=== PATIENT | female | born 1950 | race African-American/Black ===

== ENCOUNTER 2019-10-28 15:46 | Observation (INO) | payer MEDICARE, MEDICAID, SELFPAY ==
--- NOTE | ~2019-10-28 | CT_ITS ---
EXAMINATION: CT cervical spine wo con DATE: 10/28/2019 18:03 INDICATION: Chronic neck pain. Recent fall. TECHNIQUE: Computed tomography (CT) of the cervical spine was performed without intravenous contrast. The dose-length product was 584 mGy-cm. COMPARISON: CT dated 02/02/2017 FINDINGS: No acute fracture, subluxation or dislocation. Odontoid process within normal limits. There is moderate-severe multilevel spondylosis characterized by disc narrowing, endplate hypertrophy as w ell as uncinate and facet degenerative change. Lung apices are unremarkable. No evidence for perched facet. Odontoid process within normal limits. Mildly enlarged thyroid gland with heterogeneous appear ance. IMPRESSION: 1. No acute abnormality of the cervical spine. 2: Moderate-severe cervical spondylosis. Reviewed, dictated and finalized at location A.
--- NOTE | ~2019-10-28 | CT_ITS ---
EXAMINATION: CT abd pelvis lumbar w con DATE: 10/28/2019 18:03 INDICATION: Chronic back pain. Recent fall. TECHNIQUE: Computed tomography (CT) of the abdomen, pelvis and lumbar spine was performed without int ravenous contrast. The dose-length product was 1324.44 mGy-cm. Automated exposure control and iterati ve reconstruction technique were employed. COMPARISON: Lumbar spine series dated 07/01/2015. FINDINGS: Abdomen/pelvis: Bibasilar dependent atelectasis. Cardiomegaly. No significant pleural or pericardial effusion. Gallbladder is not identified, likely surgically absent. The liver, pancreas, adrenal gland s and kidneys are unremarkable. There are calcified granulomas in the spleen. There is an accessory s plenule in the left upper abdomen. No renal/ureteral stones. No significant hydronephrosis. No lympha denopathy. There is a lower abdominal wall ventral hernia containing nonobstructed bowel. There are b ilateral elliptical shaped soft tissue masses above the level of the umbilicus, largest measures 16.1 x 6.7 x 8.0 cm. Nonobstructive bowel gas pattern. Lumbar spine: There is severe lower thoracic spondylosis with complete loss of disc space at T11-12 a nd loss of disc space at T10-11, T12-L1 and L3-4. There is a concavity in the superior endplate of L4 which may represent a large Schmorl's node or posttraumatic deformity which would likely be chronic. There is degenerative anterolisthesis at L3-4. No acute fracture or traumatic malalignment is identi fied. Mild levocurvature of the lumbar spine. There is mild facet hypertrophy at L4-5 and L5-S1. IMPRESSION: 1. Elliptical shaped soft tissue masses involving the subcutaneous tissues of the anterior abdomen ab ove the umbilicus, nonspecific. Consider sequela of recent trauma or subcutaneous injections. Infecti ous/malignant etiologies are less favored. Correlate clinically for palpable abnormalities. 2: Lower abdominal wall ventral hernia containing nonobstructed bowel. 3: Severe thoracic and lumbar spondylosis. Concavity superior endplate of L4, likely represents large Schmorl's nodes secondary to degenerative change or remote posttraumatic deformity. Reviewed, dictated and finalized at location A. IMPRESSION: 1. Elliptical shaped soft tissue masses involving the subcutaneous tissues of t he anterior abdomen above the umbilicus, nonspecific. Consider sequela of recen t trauma or subcutaneous injections. Infectious/malignant etiologies are less f avored. Correlate clinically for palpable abnormalities. 2: Lower abdominal wall ventral hernia containing nonobstructed bowel. 3: Severe thoracic and lumbar spondylosis. Concavity superior endplate of L4, l ikely represents large Schmorl's nodes secondary to degenerative change or mykel te posttraumatic deformity.
--- NOTE | ~2019-10-28 | US_ITS ---
EXAMINATION: US renal BI DATE: 10/29/2019 07:59 INDICATION: Acute kidney injury TECHNIQUE: Multiple grayscale and Doppler ultrasound images of the kidneys were obtained. COMPARISON: None. FINDINGS: The right kidney measures 12.1 x 4.7 x 5.2 cm. The left kidney measures 11.5 x 5.8 x 5.2 cm . The kidneys demonstrate normal parenchymal echogenicity. There is no hydronephrosis. The bladder is incompletely distended but normal in appearance.. IMPRESSION: 1. Normal kidneys without hydronephrosis. Reviewed, dictated and finalized at location A.
--- NOTE | ~2019-10-28 | XR_ITS ---
EXAMINATION: XR chest 1V portable 10/28/2019 18:47 INDICATION: Shortness of breath PROCEDURE: AP portable chest COMPARISON: No prior studies for comparison. FINDINGS: The lungs are clear. The cardiomediastinal silhouette is within normal limits. There are no pleural effusions. There is no pneumothorax suspected. IMPRESSION: 1: NO ACUTE CARDIOPULMONARY DISEASE. Reviewed, dictated and finalized at location A.
[2019-10-28 15:43] VITALS: BP 140/57; PULSE 88; RESP 17; TEMP 36.7; O2SAT 98
[2019-10-28 17:01] LABS: Basophils Absolute Auto 0.1 K/mm3 (0.0-0.1); Basophils Percent Auto 0.3 % (0.2-1.2); Eosinophils Absolute Auto 0.2 K/mm3 (0-0.3); Eosinophils Percent Auto 1.1 % (0-4.4); Immature Granulocyte Absolute 0.15 K/mm3 (0.00-0.031); Lymphocytes Absolute Auto 1.92 K/mm3 (0.9-3.2); Lymphocytes Percent Auto 13.3 % (18.3-44.2); Mean Corpuscular HGB Conc 32.3 g/dl (32-36); Mean Corpuscular Hemoglobin 26.8 pg (26-34); Mean Corpuscular Volume 83.1 fl (80-100); Mean Platelet Volume 8.7 fl (7.4-10.4); Monocytes Percent Auto 6.7 % (2.6-8.5); Neutrophils Absolute Auto 11.2 K/mm3 (1.3-6.7); Neutrophils Percent Auto 77.6 % (45.5-73.1); Platelet Count Result 483 k/mm3 (150-375); Red Blood Count 3.73 M/mm3 (4.2-5.4); Red Cell Distribution Width 16.1 % (11.5-14.5); White Blood Count 14.5 K/mm3 (4.5-10.0)
[2019-10-28 17:03] LABS: Glucose Point of Care 314 (65-105)
[2019-10-28] MEDS: SODIUM CHLORIDE 0.9% IV 1,000 ML 999 ML IV CONT ×2 (17:03→18:41)
--- NOTE | 2019-10-28 17:03 | PC.NURSE ---
unable to obtain urine sample at this time
[2019-10-28 17:17] LABS: Alanine Aminotransferase 12 U/L (4-35); Albumin Level 3.8 g/dL (3.5-5.1); Alkaline Phosphatase 142 U/L (38-126); Aspartate Amino Transferase 21 U/L (14-36); Bilirubin,Total 0.4 mg/dL (0.2-1.3); Blood Urea Nitrogen 37 mg/dL (7-17); CRP 8.8 mg/dL (<1.0); Calcium 9.2 mg/dL (8.4-10.2); Carbon Dioxide 23 mmol/L (22-30); Chloride 99 mmol/L (98-107); Estimated CRCL calculation 30 ml/min; Estimated Glomerular Filt Rate 32; Glucose 351 mg/dL (65-105); Magnesium 2.6 mg/dL (1.6-2.3); Potassium 4.6 mmol/L (3.4-5.0); Sodium 133 mmol/L (137-145)
[2019-10-28 17:34] LABS: Alveolar/Arterial O2 Gradient 52.1 mmHg; Carboxyhemoglobin 0.6 % THb (0-2.0); Fractional Inspired Oxygen 21 %; HCO3 ABG 21.8 mEq/l (22.0-26.0); Methemoglobin ABG 0.3 %THb (0-1.5); Oxygen Content ABG 11.3 %vol (16.0-22.0); Oxyhemoglobin 77.4 % THb (90.0-100.0); Reduced Hemoglobin 21.7 %THb (0-5.0); Total Hemoglobin 10.4 g/dL (12.0-18.0); pH ABG 7.323 (7.350-7.450)
[2019-10-28 17:37] LABS: PO2 ABG 46.1 mmHg (80.0-100.0)
[2019-10-28 17:38] LABS: Modified Allen's Test Pass; Oxygen Saturation ABG 78.7 % (95.0-100.0); Site Drawn LEFT RADIAL
[2019-10-28 18:28] LABS: Add Urine Microscopic? YES; Appearance Urine Clear (Clear); Bacteria Urine Trace /hpf; Bilirubin Urine Negative (Negative); Blood Urine Negative (Negative); Color Urine Straw (Yellow); Glucose Urine UA 3+ mg/dL (Negative); Ketones Urine Trace mg/dL (Negative); Leukocyte Esterase Ur Negative LEU/UL (Negative); Mucus Urine Rare /lpf; Nitrate Urine Negative (Negative); Protein Urine Negative (Negative); RBC Urine 0-2 /hpf (0-2); Specific Grav Ur 1.018 (1.001-1.035); Squamous Epithelial Cell Urine Rare /hpf (Few); Urobilinogen Urine Negative mg/dL (<2.0); WBC Urine 0-3 /hpf
--- NOTE | 2019-10-28 18:47 | ED.GENADULT ---
HPI - General Adult General Chief complaint: Back Pain/Injury <CHASTITY Reyes Last Filed: 10/28/19 19:21> Stated complaint: neck & back pain <CHASTITY Reyes Last Filed: 10/28/19 19:21> Time Seen by Provider: 10/28/19 16:21 <CHASTITY Reyes Last Filed: 10/28/19 19:21> Source: patient <CHASTITY Reyes Last Filed: 10/28/19 19:21> Mode of arrival: EMS <CHASTITY Reyes Last Filed: 10/28/19 19:21> Limitations: no limitations <CHASTITY Reyes Last Filed: 10/28/19 19:21> History of Present Illness HPI narrative: Patient is a 69-year-old female who presents to emergency department noting difficulty with performing daily activities with decreased p.o. intake also noting that she has not taken her diabetes mellitus medications in the last week patient notes she has had neck and back pain since sustaining a fall approximately a week ago after which she was evaluated at an outside hospital sent home where she has had progressive deterioration in ability to perform daily activities patient on arrival in the bed noting moderate aching pain of the neck and low back. Patient denies new fall. Patient denies any URI symptoms urinary symptoms diarrhea or vomiting or any fever. Patient has been taking home medications off and on with some medication noncompliance as described by patient <CHASTITY Reyes Last Filed: 10/28/19 19:21> Related Data Home medications: Home Medications Medication Instructions Recorded Confirmed Unable to Obtain Home Medications 10/28/19 10/28/19 <CHASTITY Reyes Last Filed: 10/28/19 19:21> Allergies/adverse reactions: Allergies Allergy/AdvReac Type Severity Reaction Status Date / Time No Known Allergies Allergy Verified 10/28/19 15:48 <CHASTITY Reyes Last Filed: 10/28/19 19:21> Review of Systems Review of Systems: All systems reviewed & are unremarkable except as noted in HPI and below <CHASTITY Reyes Last Filed: 10/28/19 19:21> [facility] Past Medical History Medical History: Medical History Acute kidney injury Dehydration Diabetes mellitus Obesity <Adalberto Hamilton PA-C - Last Filed: 10/28/19 19:21> Social History Social History: Social History Smoking status: Never smoker Alcohol intake: never Substance use: never Living arrangements: alone Occupation/Education: unemployed Gender identity (if verbalized by the patient): Female <Adalberto Hamilton PA-C - Last Filed: 10/28/19 19:21> Exam Narrative: Exam Narrative: GENERAL: Well-appearing, obese, and in no acute distress. HEAD: Normocephalic, atraumatic. EYES: PERRLA and EOMI. ENT: Nares clear, no rhinorrhea or epistaxis. Mucous membranes moist. Oropharynx without tonsillar hypertrophy exudate or other lesions. Bilateral TMs pearly gatica nonbulging NECK: Supple. No adenopathy or masses. CHEST: Clear to auscultation. No respiratory distress. No wheezes rales or rhonchi HEART: Regular rate and rhythm. No murmur heard. Normal peripheral pulses. ABDOMEN: Soft, patient with mild tenderness of the abdomen which is generalized no rebound or guarding, nondistended, normal active bowel sounds. EXTREMITIES: Normal range of motion. No edema. Cervical and lumbar tenderness no thoracic tenderness SKIN: Warm, dry, no rash. NEURO: No focal deficits. Alert and oriented x3. Cranial nerves II through XII grossly intact PSYCH: Normal mood and affect. <Adalberto Hamilton PA-C - Last Filed: 10/28/19 19:21> Course Course Emergency Course: Patient in the room at this time aware of case findings treatment plan and diagnosis will be placed in hospital for acute kidney injury hyperglycemia new immobility. <Adalberto Hamilton PA-C - Last Filed: 10/28/19 19:21> ROTARY DERRICK OPERATOR/PA Physician Superv
[2019-10-28 20:00] VITALS: BP 150/59; PULSE 85; RESP 20; TEMP 36.4; O2SAT 100
[2019-10-28 20:10] VITALS: BMI 42.6
[2019-10-28 20:56] VITALS: BP 147/86; PULSE 87; RESP 17; O2SAT 98
--- NOTE | 2019-10-28 21:56 | PM.IMHP ---
H&P: HPI History of Present Illness Chief complaint: Acute kidney injury, hyperglycemia, Narrative: Elayne Pineda is a 69 year old female came to the emergency room today because she is having difficulty performing activities of daily living. She had decreased oral intake and had not been taking any of her medications. The patient sustained a fall about a week ago and was evaluated by an outside hospital she was sent home patient has lower back pain. She has no fever no chills no nausea no vomiting. No urinary symptoms. White count 14.5. H&H is 10.0 in 31.0. The patient stated she has not had any history of any kidney disease in the past. However today patient's creatinine is 1.9. Her blood sugars 314 and her magnesium levels 2.6. BUN is 37. Patient was given IV fluids in the emergency room chest x-ray was read as nothing acute. CT of the back cervical spine was read as no acute abnormality of the cervical spine. Moderate severe cervical spondylosis. Date of service 10/28/2019 Review of Systems Review of Systems: All systems reviewed & are unremarkable except as noted in HPI and below Constitutional: Constitutional: Reports as per HPI and Reports no additional constitutional complaints Eyes: Eyes: Reports as per HPI and Reports no additional eye complaints ENT: Reports system reviewed and no additional complaints, except as documented and Reports Normal hearing present Cardiovascular: Cardiovascular: Reports no additional cardiovascular complaints Respiratory: Respiratory: Reports no additional respiratory complaints and Reports no additional respiratory complaints Gastrointestinal: Gastrointestinal: Reports as per HPI and Reports no additional gastrointestinal complaints Musculoskeletal: Musculoskeletal: Reports no additional musculoskeletal complaints Integumentary/Breasts: Skin/Breast: Reports system reviewed and no additional complaints, except as docu and Reports as per HPI Neurologic: Reports system reviewed and no additional complaints, except as documented, Reports as per HPI and Reports Normal hearing present Psychiatric: Psychiatric: Reports no additional psychiatric complaints and Reports as per HPI Endocrine: Endocrine: Reports no additional endocrine complaints Hematologic/Lymphatic: Hematologic/Lymphatic: Reports no additional hematologic/lymphatic complaints Allergic/Immunologic: Allergic/Immunologic: Reports no additional allergic/immunologic complaints [facility] Past Medical History Medical History (Updated 10/28/19 @ 22:04 by Renate Fields NP) Acute kidney injury Anemia Congestive heart failure CVA (cerebral vascular accident) Dehydration Diabetes mellitus DM2 (diabetes mellitus, type 2) Insulin dependent Glaucoma Hypertension Obesity Surgical History Surgical History (Updated 10/28/19 @ 22:04 by Renate Fields NP) Cataract extraction status Bilaterally H/O removal of cyst Left wrist H/O: hysterectomy History of appendectomy Hx of cholecystectomy S/P trigger finger release Family History Family History Daughter Cerebrovascular accident Sibling Lung cancer 1 brother Malignant neoplasm of prostate Other brother Social History Social History (Updated 10/28/19 @ 22:09 by Renate Fields NP) Social History: The patient has 3 children. 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 She lives home alone. She is a full code and does not have a durable power litigation attorney for healthcare. One daughter is in the residential due to strokes. She denies any alcohol tobacco or drugs. Smoking status: Never smoker Alcohol intake: never Substance use: never Living arrangements: alone Occupation/Education: unemployed Gender identity (if verbalized by the patient): Female Meds Home Medications and Allergies Home Medications Medication Instructions Recorded Confirmed Type Unable t
[2019-10-28 22:00] VITALS: BP 148/62; PULSE 84; RESP 18; TEMP 36.2; O2SAT 100
[2019-10-28] MEDS: FAMOTIDINE 20 MG/2 ML VIAL IV PUSH (23:37)
[2019-10-28] MEDS: LACTATED RINGERS 1,000 ML 75 ML IV CONT (23:37)
[2019-10-29 00:16] LABS: Creatinine Urine 27.7 mg/dL
[2019-10-29 00:30] LABS: Sodium Urine Random 76 meq/L
[2019-10-29] MEDS: ZOLPIDEM TARTRATE 5 MG TABLET 10 MG PO ×2 (01:31→21:57)
--- NOTE | 2019-10-29 05:33 | ADMGEN ---
This patient, Elayne Pineda, was admitted to 3 [facility] Surg Room 320-01. Patient/family oriented to hospital policies and general routines including ID bracelet, bed and alarms, visiting hours, pain management, procedures, bathroom and other care routines, personal items, smoking policy, room service/diet, and visiting hours. Valuables list has been completed. Information on how to activate the Rapid Response Team has been discussed. Patient/Family are encouraged to report perceived risks to care and to ask questions if they do not understand what they are told or what they should do.
[2019-10-29 05:57] LABS: Total Protein Urine Random 16 mg/dL
[2019-10-29 06:00] VITALS: BP 150/62; PULSE 77; RESP 16; TEMP 36.2; O2SAT 100
[2019-10-29 06:16] LABS: Basophils Absolute Auto 0.1 K/mm3 (0.0-0.1); Basophils Percent Auto 0.5 % (0.2-1.2); Eosinophils Absolute Auto 0.3 K/mm3 (0-0.3); Eosinophils Percent Auto 2.3 % (0-4.4); Hematocrit 32.5 % (37.0-47.0); Hemoglobin 10.2 g/dL (12.0-15.0); Immature Granulocyte Absolute 0.16 K/mm3 (0.00-0.031); Immature Granulocyte Percent A 1.1 % (0-0.5); Lymphocytes Absolute Auto 2.02 K/mm3 (0.9-3.2); Lymphocytes Percent Auto 13.9 % (18.3-44.2); Mean Corpuscular HGB Conc 31.4 g/dl (32-36); Mean Corpuscular Hemoglobin 26.4 pg (26-34); Mean Corpuscular Volume 84.2 fl (80-100); Mean Platelet Volume 8.8 fl (7.4-10.4); Neutrophils Percent Auto 75.2 % (45.5-73.1); Platelet Count Result 476 k/mm3 (150-375); Red Blood Count 3.86 M/mm3 (4.2-5.4); Red Cell Distribution Width 16.3 % (11.5-14.5); White Blood Count 14.6 K/mm3 (4.5-10.0)
[2019-10-29 06:36] LABS: Blood Urea Nitrogen 30 mg/dL (7-17); Calcium 9.1 mg/dL (8.4-10.2); Carbon Dioxide 21 mmol/L (22-30); Chloride 104 mmol/L (98-107); Estimated CRCL calculation 36 ml/min; Estimated Glomerular Filt Rate 42; Glucose 278 mg/dL (65-105); Sodium 134 mmol/L (137-145)
[2019-10-29 06:38] LABS: Hemoglobin A1C 9.6 % (<5.7)
[2019-10-29 08:00] VITALS: PULSE 77; RESP 16; O2SAT 100
[2019-10-29 09:31] LABS: Glucose Point of Care 292 (65-105)
[2019-10-29] MEDS: FAMOTIDINE 20 MG/2 ML VIAL IV PUSH ×2 (10:26→21:57)
[2019-10-29] MEDS: metOLazone 5 MG TABLET PO (10:26)
[2019-10-29] MEDS: TIZANIDINE HCL 4 MG TABLET PO ×2 (10:26→17:30)
[2019-10-29] MEDS: ATORVASTATIN 40 MG TABLET PO (10:29)
[2019-10-29] MEDS: buPROPion HCL XL (24 HR) 150 MG TABCR 300 MG PO (10:29)
[2019-10-29] MEDS: PANTOPRAZOLE 40 MG TABLET PO (10:30)
[2019-10-29] MEDS: INSULIN ASPART (*BKC) 100 UNITS/ML SUB-Q ×3 (10:37→17:32)
[2019-10-29] MEDS: LACTATED RINGERS 1,000 ML 75 ML IV CONT (10:37)
[2019-10-29] MEDS: CANAGLIFLOZIN 100 MG TABLET PO (10:38)
[2019-10-29 12:54] LABS: Glucose Point of Care 353 (65-105)
[2019-10-29 14:00] VITALS: BP 129/48; PULSE 75; RESP 18; TEMP 36.3; O2SAT 100
--- NOTE | 2019-10-29 14:22 | P.PNIM_ITS ---
Progress Note: A&P Assessment and Plan (1) Acute kidney injury: Code(s): N17.9 - Acute kidney failure, unspecified Status: Acute Assessment and Plan: At presentation, creatinine 1.9 and BUN 37. Her JACY is likely prerenal secondary to dehydration. Renal ultrasound revealed normal kidneys without evidence of hydronephrosis. Improvement in renal function today with creatinine 1.5 and BUN 30. There are no prior records to establish baseline. * Continue gentle IV fluid hydration * Renally dose medications avoid nephrotoxic agents * Continue to monitor renal function closely. Suspect improvement with rehyd ration. (2) Dehydration: Code(s): E86.0 - Dehydration Status: Acute Assessment and Plan: Patient reports earlier this week she had been vomiting and had not been tolerating oral intake. On my exam today, she appears euvolemic with very mild pedal edema. * Continue very gentle IV fluids today. Plan to discontinue tomorrow with hopeful improvement of JACY. * Closely monitor for signs of fluid overload given patient's reported history of CHF. * Monitor I&O closely (3) Acute bilateral low back pain: Qualifiers: Sciatica presence: without sciatica Qualified Code(s): M54.5 - Low back pain Code(s): M54.5 - Low back pain Status: Acute Assessment and Plan: She has had back pain for some time and has previously been established with Pain Management, although she is no longer current. She had a fall approximately 1 week ago that exacerbated her pain. She has been complaining of weakness since this time. CT of lumbar spine demonstrates severe thoracic and lumbar spondylosis * Continue p.r.n. [place] for pain * Supportive care including heat and ice as needed * Continue PT and OT * Patient may benefit from reestablishment with pain management per primary care referral. (4) Cervicalgia: Code(s): M54.2 - Cervicalgia Status: Acute Assessment and Plan: Patient complains of neck pain and has limited range of motion on exam, secondary to pain. A CT of her neck demonstrated moderate to severe cervical spondylosis without any acute abnormalities. * Continue care as above with [place] for pain and supportive care. * Patient may benefit from pain management as above (5) DM2 (diabetes mellitus, type 2): Qualifiers: Diabetes mellitus intermission coordinator insulin use: with intermediate use Code(s): E11.9 - Type 2 diabetes mellitus without complications Status: Chronic Assessment and Plan: Her A1c is 9.6% (10/29/2019). She is not on any long-acting insulin but does use sliding scale insulin at home. Her blood sugars have been elevated during her stay up to 353 today. * Continue Accu-Cheks ACHS, moderate dose sliding scale insulin, and hypoglycemia protocol * Will add 15 units Lantus for improved control * Continue Invokana * Continue to monitor blood sugars closely (6) Hypertension: Qualifiers: Hypertension type: essential hypertension Qualified Code(s): I10 - Es sential (primary) hypertension Code(s): I10 - Essential (primary) hypertension Status: Chronic Assessment and Plan: Blood pressure was evaluated today and is stable at 150/62. She is not on any antihypertensives, with the exception of her diuretic therapy. * She has p.r.n. hydralazine on board. She has not required any doses. * Plan to resume Lasix when clinically appropriate * Continue to monitor blood pressures closely (7) Anemia:
--- NOTE | 2019-10-29 14:22 | PM.IMPN ---
Progress Note: A&P Assessment and Plan (1) Acute kidney injury: Code(s): N17.9 - Acute kidney failure, unspecified Status: Acute Assessment and Plan: At presentation, creatinine 1.9 and BUN 37. Her JACY is likely prerenal secondary to dehydration. Renal ultrasound revealed normal kidneys without evidence of hydronephrosis. Improvement in renal function today with creatinine 1.5 and BUN 30. There are no prior records to establish baseline. Continue gentle IV fluid hydration Renally dose medications avoid nephrotoxic agents Continue to monitor renal function closely. Suspect improvement with rehydration. (2) Dehydration: Code(s): E86.0 - Dehydration Status: Acute Assessment and Plan: Patient reports earlier this week she had been vomiting and had not been tolerating oral intake. On my exam today, she appears euvolemic with very mild pedal edema. Continue very gentle IV fluids today. Plan to discontinue tomorrow with hopeful improvement of JACY. Closely monitor for signs of fluid overload given patient's reported history of CHF. Monitor I&O closely (3) Acute bilateral low back pain: Qualifiers: Sciatica presence: without sciatica Qualified Code(s): M54.5 - Low back pain Code(s): M54.5 - Low back pain Status: Acute Assessment and Plan: She has had back pain for some time and has previously been established with Pain Management, although she is no longer current. She had a fall approximately 1 week ago that exacerbated her pain. She has been complaining of weakness since this time. CT of lumbar spine demonstrates severe thoracic and lumbar spondylosis Continue p.r.n. [place] for pain Supportive care including heat and ice as needed Continue PT and OT Patient may benefit from reestablishment with pain management per primary care referral. (4) Cervicalgia: Code(s): M54.2 - Cervicalgia Status: Acute Assessment and Plan: Patient complains of neck pain and has limited range of motion on exam, secondary to pain. A CT of her neck demonstrated moderate to severe cervical spondylosis without any acute abnormalities. Continue care as above with [place] for pain and supportive care. Patient may benefit from pain management as above (5) DM2 (diabetes mellitus, type 2): Qualifiers: Diabetes mellitus fci insulin use: with fci use Code(s): E11.9 - Type 2 diabetes mellitus without complications Status: Chronic Assessment and Plan: Her A1c is 9.6% (10/29/2019). She is not on any long-acting insulin but does use sliding scale insulin at home. Her blood sugars have been elevated during her stay up to 353 today. Continue Accu-Cheks ACHS, moderate dose sliding scale insulin, and hypoglycemia protocol Will add 15 units Lantus for improved control Continue Invokana Continue to monitor blood sugars closely (6) Hypertension: Qualifiers: Hypertension type: essential hypertension Qualified Code(s): I10 - Essential (primary) hypertension Code(s): I10 - Essential (primary) hypertension Status: Chronic Assessment and Plan: Blood pressure was evaluated today and is stable at 150/62. She is not on any antihypertensives, with the exception of her diuretic therapy. She has p.r.n. hydralazine on board. She has not required any doses. Plan to resume Lasix when clinically appropriate Continue to monitor blood pressures closely (7) Anemia: Code(s): D64.9 - Anemia, unspecified Status: Chronic Assessment and Plan: Microcytic. She reports history of anemia. There are no prior labs for review, however hemoglobin hematocrit have been stable today. Continue to monitor H&H closely (8) Generalized weakness: Code(s): R53.1 - Weakness Status: Acute Assessment and Plan: She had a fall approximately 1 week ago. She re
[2019-10-29 17:32] LABS: Glucose Point of Care 322 (65-105)
[2019-10-29 22:00] VITALS: BP 146/62; PULSE 76; RESP 20; TEMP 36.3; O2SAT 100
[2019-10-29] MEDS: INSULIN GLARGINE (*BKC) 100 UNITS/ML 15 UNITS SUB-Q (22:02)
[2019-10-30] MEDS: LACTATED RINGERS 1,000 ML 75 ML IV CONT (02:30)
[2019-10-30 05:43] LABS: Glucose Point of Care 359 (65-105)
[2019-10-30 06:00] VITALS: BP 146/61; PULSE 87; RESP 20; TEMP 36.1; O2SAT 100
[2019-10-30 06:39] LABS: Hematocrit 31.2 % (37.0-47.0); Hemoglobin 10.1 g/dL (12.0-15.0); Mean Corpuscular HGB Conc 32.4 g/dl (32-36); Mean Corpuscular Hemoglobin 26.6 pg (26-34); Mean Corpuscular Volume 82.3 fl (80-100); Mean Platelet Volume 8.3 fl (7.4-10.4); Platelet Count Result 428 k/mm3 (150-375); Red Blood Count 3.79 M/mm3 (4.2-5.4); Red Cell Distribution Width 16.2 % (11.5-14.5); White Blood Count 14.9 K/mm3 (4.5-10.0)
[2019-10-30 06:51] LABS: Blood Urea Nitrogen 23 mg/dL (7-17); Calcium 9.2 mg/dL (8.4-10.2); Carbon Dioxide 23 mmol/L (22-30); Chloride 100 mmol/L (98-107); Estimated CRCL calculation 39 ml/min; Estimated Glomerular Filt Rate 45; Glucose 297 mg/dL (65-105); Sodium 132 mmol/L (137-145)
[2019-10-30] MEDS: buPROPion HCL XL (24 HR) 150 MG TABCR 300 MG PO (07:59)
[2019-10-30] MEDS: TIZANIDINE HCL 4 MG TABLET PO (07:59)
[2019-10-30] MEDS: ATORVASTATIN 40 MG TABLET PO (07:59)
[2019-10-30] MEDS: CANAGLIFLOZIN 100 MG TABLET PO (07:59)
[2019-10-30] MEDS: PANTOPRAZOLE 40 MG TABLET PO (07:59)
[2019-10-30] MEDS: INSULIN ASPART (*BKC) 100 UNITS/ML SUB-Q ×2 (08:02→12:01)
[2019-10-30 08:25] LABS: Glucose Point of Care 291 (65-105)
[2019-10-30 12:11] LABS: Glucose Point of Care 308 (65-105)
[2019-10-30 14:00] VITALS: BP 132/76; PULSE 74; RESP 18; TEMP 36.4; O2SAT 100
--- NOTE | 2019-10-30 14:53 | PM.DS ---
DS: Admitting Diagnosis Admitting Diagnosis Admitting Diagnosis: Acute kidney failure, unspecified DS: Discharge Diagnosis Discharge Diagnosis (1) Acute kidney injury: Code(s): N17.9 - Acute kidney failure, unspecified Status: Acute Assessment and Plan: At presentation, creatinine 1.9 and BUN 37. Her JACY was felt to be prerenal secondary to dehydration or due to nephrotoxic medication. FENa was 10%, indicating obstructive JACY, however there was no evidence of urinary retention, stone, or other etiology. Renal ultrasound revealed normal kidneys without evidence of hydronephrosis. There were no prior labs for review, but following discussion with PCP, her baseline Cr appears to be elevated with most recent being 1.8 in April 2019. Renal function improved with gentle IV fluids and on day of discharge, BUN was 23 and Cr was 1.4. Her 80 mg am Lasix was resumed but her 40 mg pm lasix was held until repeat labs and follow up with PCP. She will repeat a BMP in 5 days. (2) Dehydration: Code(s): E86.0 - Dehydration Status: Acute Assessment and Plan: Patient reports earlier in the week she had a few episodes of vomiting and had not been tolerating oral intake. She was gently rehydrated with IV fluids. She appeared euvolemic on my exam. IV fluids were given cautiously due to concern for fluid overload with history of CHF. She had good urine output. She did not have any further emesis and her oral intake improved. (3) Acute bilateral low back pain: Qualifiers: Sciatica presence: without sciatica Qualified Code(s): M54.5 - Low back pain Code(s): M54.5 - Low back pain Status: Acute Assessment and Plan: She has had back pain for some time and had previously been established with Pain Management, although she is no longer current. She had a fall approximately 1 week ago that exacerbated her pain. She complained of weakness since this time. CT of lumbar spine showed severe thoracic and lumbar spondylosis. She was evaluated by PT/OT and will continue therapy with Home Health. Her pain was managed with her typical home pain regimen of Tylenol #3. I believe she will benefit from re-establishment with pain management. (4) Cervicalgia: Code(s): M54.2 - Cervicalgia Status: Acute Assessment and Plan: She complained of neck pain and was mildly limited in range of motion on exam due to concerns of eliciting pain. A CT of her neck demonstrated moderate to severe cervical spondylosis without any acute abnormalities. As noted above, she will continue PT/OT and would likely benefit from pain management. (5) DM2 (diabetes mellitus, type 2): Qualifiers: Diabetes mellitus terminal press operator insulin use: with terminal press operator use Code(s): E11.9 - Type 2 diabetes mellitus without complications Status: Chronic Assessment and Plan: Her A1c is 9.6% (10/29/2019). She uses sliding scale insulin at home. Lantus is on her home med list, but she states she only uses sliding scale correction insulin. We discussed the importance of taking both her rapid acting and long acting insulin as prescribed, as well as continuing Invokana. I recommended that she monitor her blood sugars at home ACHS and record for review by PCP. (6) Hypertension: Qualifiers: Hypertension type: essential hypertension Qualified Code(s): I10 - Essential (primary) hypertension Code(s): I10 - Essential (primary) hypertension Status: Chronic Assessment and Plan: Blood pressures were monitored and were acceptable. She is not on any antihypertensives, with the exception of her diuretic therapy, which she will continue. (7) Anemia: Code(s): D64.9 - Anemia, unspecified Status: Chronic Assessment and Plan: Microcytic. She reports a history of anemia. There were no prior labs for review, however hemoglobin and hematocrit remained stab
[2019-10-31 04:47] LABS: Osmolality, Urine 495 mOsm/kg (50-1200)
== END 2019-10-30 16:10 | disposition home health service (06) ==
LOC: ANHED 19:37 → ANH3MEDSUR 20:03
PROVIDERS: Emergency Medicine Emergency Medical Services; Nurse Practitioner; Physician Assistant; Admitting Provider Family Medicine; Emergency Provider Emergency Medicine; PCP Internal Medicine; Visit Provider Internal Medicine
DX: E86.0 Dehydration (principal); N17.9 Acute kidney failure, unspecified; E11.65 Type 2 diabetes mellitus with hyperglycemia; M47.812 Spondylosis without myelopathy or radiculopathy, cervical region; I11.0 Hypertensive heart disease with heart failure; I50.9 Heart failure, unspecified; D64.9 Anemia, unspecified; H40.9 Unspecified glaucoma; M54.5 Low back pain; Z79.4 Long term (current) use of insulin
CPT/HCPCS: 36415; 36600; 51701; 71045; 72125; 72132; 74177; 76775; 80048; 80053; 81001; 81002; 81050; 82010; 82375; 82570; 82805; 82948; 83036; 83050; 83735; 83935; 84100; 84105; 84156; 84300; 85025; 85027; 85999; 86140; 96361; 96365; 96375; 96376; 97110; 97161; 97165; 97530; 97535; 99285; A9270; G0378; J0131; J1815; J7030; J7120; Q9967